=== PATIENT | female | born 1985 | race Two or more races ===

== ENCOUNTER 2016-11-05 12:39 | Emergency (ER) | payer OTHER ==
[~2016-11-05 12:39] MED LIST: CELEXA10 M1 PO; NORCO 5/325 TAB1 TAB PO; NORCO 5/3251 TAB PO; SPRINTEC 28 DA1 EACH PO
[2016-11-05 13:26] LABS: URINE BILIRUBIN NEGATIVE (NEG); URINE BLOOD LARGE (NEG); URINE GLUCOSE (UA) NEGATIVE (NEG); URINE KETONE NEGATIVE (NEG); URINE LEUKOCYTE ESTERASE POSITIVE (NEG); URINE NITRITE NEGATIVE (NEG); URINE PROTEIN MODERATE (NEG); URINE SPECIFIC GRAVITY 1.015 (1.003-1.030)
[2016-11-05 13:28] LABS: URINE APPEARANCE CLOUDY; URINE COLOR YELLOW
[2016-11-05 13:35] LABS: BASO % 0.2 % (0-2); EOS % 0.8 % (0-7); EOSINOPHIL ABSOLUTE COUNT 0.1 tho/cmm (0.0-0.7); HCT-HEMATOCRIT 43.5 % (34.0-49.0); HGB-HEMOGLOBIN 15.5 gm/dl (12.0-15.5); IMMATURE GRANULOCYTES ABSOLUTE 0.01 tho/cmm (0-0.03); IMMATURE GRANULOCYTES PERCENT 0.1 % (0-0.3); LYMPH ABSOLUTE COUNT 2.6 tho/cmm (0.8-4.5); MCH (MEAN CORPUSCULAR HGB) 33.6 pg (28.0-32.0); MCHC MEAN CORPUSCULAR HGB CONC 35.6 % (32.0-36.0); MCV (MEAN CELL VOLUME) 94.4 fl (82.0-96.0); MEAN PLATELET VOLUME 10.4 cmc (9.4-12.4); MONO % 7.8 % (0-12); MONOCYTE ABSOLUTE COUNT 0.7 tho/cmm (0.0-1.2); NEUTROPHILS % 60.1 % (40-80); PLATELET COUNT 235 tho/cmm (150-450); RED BLOOD COUNT 4.61 mil/cmm (4.00-5.20); RED CELL DISTRIBUTION WIDTH 11.5 % (12.4-16.4); WHITE BLOOD COUNT 8.3 tho/cmm (4.0-10.0)
[2016-11-05 13:49] LABS: CREATININE 0.67 mg/dl (0.67-1.17); eGFR VALUE FOR BLACK >90 mL/Min
[2016-11-05 13:55] LABS: URINE WBC 25-30 /[HPF] (0-5)
[2016-11-05 13:56] LABS: URINE EPITHELIAL CELLS 0-2 /[HPF] (0-10); URINE RBC 50-60 /[HPF] (0-5)
[2016-11-05 13:57] LABS: PREGNANCY-SERUM NEGATIVE (NEGATIVE)
[2016-11-05] MEDS ORDERED: BACTRIM DS TAB1 EAC2 PO (14:54)
[2016-11-05] MEDS ORDERED: ZOFRAN4 M2 PO (14:54)
[2016-11-05] MEDS ORDERED: NORCO 5-325 TA1 EACH PO (14:54)
== END 2016-11-05 15:42 ==
LOC: EDMED 12:39
PROVIDERS: Emergency Medicine
DX: N39.0 Urinary tract infection, site not specified (principal); Z87.442 Personal history of urinary calculi; F17.200 Nicotine dependence, unspecified, uncomplicated
CPT/HCPCS: J1885; J2270; J2405; J7030